=== PATIENT | male | born 1950 | race Caucasian/White ===

== ENCOUNTER 2024-04-16 11:52 | Outpatient (CLI) | payer OTHER | END 2024-04-16 11:58 | disposition home or self-care (01) | LOC: RAD 11:52 | PROVIDERS: ATTEND Orthopaedic Surgery | DX: M79.671 Pain in right foot (principal) ==

== ENCOUNTER 2024-05-07 10:53 | Outpatient (CLI) | payer OTHER | END 2024-05-07 11:05 | disposition home or self-care (01) | LOC: RAD 10:53 | PROVIDERS: ATTEND Orthopaedic Surgery | DX: M25.571 Pain in right ankle and joints of right foot (principal) ==

== ENCOUNTER 2024-06-13 11:09 | Outpatient (CLI) | payer OTHER | END 2024-06-13 16:01 | disposition home or self-care (01) | LOC: RAD 11:09 | PROVIDERS: ATTEND Orthopaedic Surgery | DX: M54.50 Low back pain, unspecified (principal) ==